=== PATIENT | female | born 1990 | race Caucasian/White ===

== ENCOUNTER 2018-11-10 09:10 | Inpatient (IN) | payer MEDICAID ==
[~2018-11-10] VITALS: Ht 144.8 cm; Wt 74.8 kg
[~2018-11-10 09:10] MED LIST: METHYLERGONOVINE 0.2 MG INJ ONE; PNV11TAB PO
[2018-11-10 09:24] VITALS: Ht 144.8 cm; Wt 74.8 kg
[2018-11-10 09:25] VITALS: BP 119/74; PULSE 85; RESP 18
[2018-11-10] MEDS ORDERED: LACTATED RINGER'S 1,000 ML IV PRN (12:54)
[2018-11-10] MEDS ORDERED: OXYTOCIN 30 UNITS/LR 500 ML IV SCH ×2 (13:00)
[2018-11-10] MEDS ORDERED: MISOPROSTOL 200 MCG TAB PR PRN (13:00)
[2018-11-10] MEDS ORDERED: OXYTOCIN 30 UNITS/LR 500 ML IV PRN (13:00)
[2018-11-10] MEDS ORDERED: LIDOCAINE 1% (MPF) 30 ML INJ INJ PRN (13:00)
[2018-11-10] MEDS ORDERED: METHYLERGONOVINE 0.2 MG INJ IM PRN (13:00)
[2018-11-10] MEDS ORDERED: CARBOPROST 250 MCG INJ IM PRN (13:00)
[2018-11-10] MEDS: LACTATED RINGER'S 1,000 ML IV SCH ×2 (13:19→18:53)
[2018-11-10] MEDS: MISOPROSTOL 50 MCG CAPSULE PO SCH ×3 (13:19→22:39)
[2018-11-11] MEDS: LACTATED RINGER'S 1,000 ML IV SCH ×3 (02:41→18:54)
[2018-11-11] MEDS: MISOPROSTOL 50 MCG CAPSULE PO SCH ×3 (02:41→10:39)
[2018-11-11] MEDS ORDERED: OXYTOCIN 30 UNITS/LR 500 ML IV SCH ×3 (11:30→23:00)
[2018-11-11] MEDS ORDERED: BUTORPHANOL 2 MG INJ IV PRN (23:00)
[2018-11-11] MEDS ORDERED: IBUPROFEN 600 MG TAB PO PRN (23:00)
[2018-11-12] MEDS ORDERED: FENTAnyl 2MCG/ML-ROPIV 0.2% 100 ML ONE (03:57)
[2018-11-12] MEDS ORDERED: NALOXONE (0.4 MG/ML) INJ IV PRN (04:30)
[2018-11-12] MEDS ORDERED: DIPHENHYDRAMINE 50 MG INJ IV PRN (04:30)
[2018-11-12] MEDS ORDERED: ONDANSETRON 4 MG INJ IV PRN (04:30)
[2018-11-12] MEDS ORDERED: NALBUPHINE HCL (10 MG/1 ML) INJ IV PRN (04:30)
[2018-11-12] MEDS: FENTAnyl 2MCG/ML-ROPIV 0.2% 100 ML BAG EPI SCH ×2 (08:13→10:36)
[2018-11-12] MEDS: LACTATED RINGER'S 1,000 ML IV SCH ×3 (08:14→14:51)
[2018-11-12] MEDS ORDERED: CARBOPROST 250 MCG INJ IM PRN (16:00)
[2018-11-12] MEDS ORDERED: BENZOCAINE 20% 56 ML SPRAY TOP PRN (16:00)
[2018-11-12] MEDS ORDERED: OXYTOCIN 30 UNITS/LR 500 ML IV PRN (16:00)
[2018-11-12] MEDS ORDERED: DIBUCAINE 1% 30 GM OINT TOP PRN (16:00)
[2018-11-12] MEDS ORDERED: WITCH HAZEL/GLYCERIN PAD PR PRN (16:00)
[2018-11-12] MEDS ORDERED: METHYLERGONOVINE 0.2 MG INJ IM PRN (16:00)
[2018-11-12] MEDS ORDERED: MISOPROSTOL 200 MCG TAB PR PRN (16:00)
[2018-11-12] MEDS ORDERED: ACETAMINOPHEN 325 MG TAB PO PRN (16:00)
[2018-11-12 18:00] VITALS: BP 135/69; PULSE 68; RESP 18
[2018-11-12] MEDS: IBUPROFEN 600 MG TAB PO SCH ×2 (18:00→23:58)
[2018-11-12 18:44] VITALS: BP 128/73; PULSE 65; RESP 18
[2018-11-12 20:15] VITALS: BP 109/59; PULSE 87; RESP 20
[2018-11-12] MEDS: SENNA/DOCUSATE NA (8.6MG/50MG) TAB PO SCH (20:57)
[2018-11-12] MEDS: HYDROCODONE/APAP (5/325) TAB PO PRN (21:30)
[2018-11-12] MEDS: LACTATED RINGER'S 1,000 ML IV* SCH (23:45)
[2018-11-13 04:23] VITALS: BP 90/68; PULSE 69; RESP 20
[2018-11-13] MEDS: LACTATED RINGER'S 1,000 ML IV SCH (04:54)
[2018-11-13] MEDS: LACTATED RINGER'S 1,000 ML IV* SCH ×3 (04:57→23:45)
[2018-11-13] MEDS: IBUPROFEN 600 MG TAB PO SCH ×3 (05:42→18:09)
[2018-11-13 09:02] VITALS: BP 99/54; PULSE 84; RESP 18
[2018-11-13] MEDS: SENNA/DOCUSATE NA (8.6MG/50MG) TAB PO SCH ×2 (09:03→20:15)
[2018-11-13 15:30] VITALS: BP 93/54; PULSE 65; RESP 18
[2018-11-13 20:00] VITALS: BP 112/66; PULSE 80; RESP 18
[2018-11-14 03:30] VITALS: BP 106/62; PULSE 69; RESP 18
[2018-11-14] MEDS: IBUPROFEN 600 MG TAB PO SCH ×3 (06:00→12:00)
[2018-11-14 08:00] VITALS: BP 122/68; PULSE 70; RESP 18
[2018-11-14] MEDS: SENNA/DOCUSATE NA (8.6MG/50MG) TAB PO SCH (08:45)
[2018-11-14] MEDS ORDERED: DIPHTH/TET/ACEL PERTUSS (ADULT) 0.5 ML VIAL IM* ONE (09:00)
[2018-11-14] MEDS: HYDROCODONE/APAP (5/325) TAB PO PRN (09:48)
== END 2018-11-14 13:40 | disposition home or self-care (01) | DRG 806 ==
LOC: OBT 09:10 → L-D 09:11 → OBT 11:00 → L-D 11:08 → PP1 11-12 17:59
PROVIDERS: ADMIT Obstetrics & Gynecology; ATTEND Obstetrics & Gynecology
PROC: 10E0XZZ Delivery of Products of Conception, External Approach (ICD-10-PCS; principal; 2018-11-12)
PROC: 0KQM0ZZ Repair Perineum Muscle, Open Approach (ICD-10-PCS; 2018-11-12)
PROC: 3E033VJ Introduction of Other Hormone into Peripheral Vein, Percutaneous Approach (ICD-10-PCS; 2018-11-12)
DX: O48.0 Post-term pregnancy (principal); O71.4 Obstetric high vaginal laceration alone; Z37.0 Single live birth; Z3A.40 40 weeks gestation of pregnancy
CPT/HCPCS: 62322; 76815; 76818; 85025; 85610; 85730; 86592; 86850; 86900; 86901; 87340; 99464; G0463; J0595; J2210; J2405; J2590; J3010; J7120